=== PATIENT | female | born 1985 | race Caucasian/White ===

== ENCOUNTER 2022-06-30 16:37 | Emergency (ER) | payer SELFPAY ==
[~2022-06-30] VITALS: Ht 167.6 cm; Wt 61.2 kg
[2022-06-30] MEDS ORDERED: ULTRAM 50MG50 MG PO (18:38)
== END 2022-06-30 18:55 | disposition home or self-care (01) ==
LOC: ER 17:00
DX: M79.605 Pain in left leg (principal); M25.562 Pain in left knee
CPT/HCPCS: 93971; 99283